=== PATIENT | male | born 1975 | race Caucasian/White ===

== ENCOUNTER → 2019-05-13 14:12 | Outpatient (CLI) | payer BC, SELFPAY ==
--- NOTE | 2019-05-13 14:25 | CT_ITS ---
PROCEDURE: CT SINUS WO CON CLINICAL HISTORY: CELLULITIS, FACIAL SWELLING, PIPER Cellulitis, swelling in the nose, left-sided facial pain and swelling COMPARISON: No exams were available for comparison TECHNIQUE: Axial images obtained with sagittal and coronal reformats. All CT scans at the facility use one or more dose reduction, viz: automated exposure control, ma/kV adjustment per patient size (including targeted exams where dose is matched to indication, i.e. head), or iterative reconstruction technique. FINDINGS: There is mild leftward nasal septal deviation inferiorly with narrowing of the left nasal canal. Minimal mucosal thickening involves the maxillary sinus on the left. No sinus air-fluid levels evident. No sinus soft tissue mass. The TMJs have an unremarkable appearance as do the orbits. No fracture or dislocation. No acute bony findings. Scattered small nodes are present in the neck. IMPRESSION: 1. No evidence of acute sinusitis. There is only minimal mucosal thickening of the maxillary sinus on the left. 2. Leftward nasal septal deviation Dictated by: aPrth Norwood MD 05/14/2019 14:40 Electronically signed by Parth Norwood MD in [place] 05/14/2019 14:40
== END ==
PROVIDERS: PCP Nurse Practitioner; Visit Provider Nurse Practitioner
DX: R22.0 Localized swelling, mass and lump, head; G44.89 Other headache syndrome; L03.213 Periorbital cellulitis
CPT/HCPCS: 70486

== ENCOUNTER 2020-09-29 13:20 | Emergency (ER) | payer BC, SELFPAY ==
[2020-09-29 13:28] VITALS: BP 142/96; PULSE 67; RESP 19; TEMP 37; O2SAT 100; BMI 27.8
--- NOTE | 2020-09-29 13:40 | HMH.EDUTC ---
[facility] [place]ression: Strep throat Disposition: Home, Self-Care Condition on Discharge: Good Instructions: Strep Throat, DI for Strep Throat Additional Instructions: Drink plenty of fluids. Take tylenol or ibuprofen for pain or fever. Take the medications as directed. Follow up with your regular doctor. GO TO THE ER FOR ANY WORSENING SYMPTOMS Throw you tooth brush away and get a new one. Prescriptions: Ondansetron [Zofran 4mg ODT] 4 mg PO Q8HP PRN #12 tab.rapdis PRN Reason: Nausea Transmission Status: [facility] Amoxicillin/Potassium Clav [Augmentin 875-125 Tablet] 1 tab PO Q12H 10 Days #20 tab Transmission Status: Re[facility] by [facility] Referrals: David Martinez MD [Primary Care Provider] - Time of Disposition: 13:44 Medical Decision Making - Medical Records Medical records reviewed: No: I reviewed the patient's medical records. - [place] Inquiry Pt receiving controlled substance: No Vital Signs: 09/29/20 13:28 09/29/20 14:36 Temperature 98.6 F 98.6 F Temperature Source Oral Oral Pulse Rate 70 Pulse Rate [Left] 67 Respiratory Rate 19 19 Blood Pressure 142/90 H Blood Pressure [Left Arm] 142/96 H Blood Pressure Mean [Left Arm] 111 02 Sat by Pulse Oximetry 100 Oxygen Delivery Method Room Air Room Air [facility] [place] - General Stated complaint: possible strep Time Seen by Provider: 09/29/20 13:40 Mode of Arrival: Family Vehicle Source of Information: Patient Description of Symptoms (Recalled from Triage Doc. by RN): Pt c/o sore throat, his family has been dx with strep this week. HEENT Symptoms (Recalled from RN notes): Yes Resp Symptoms (Recalled from RN notes): No Skin Symptoms (Recalled from RN notes): No MS Symptoms (Recalled from RN notes): No Functional Status (Recalled from RN notes): na - History of Present Illness Provider Complaint: He c/o sore throat for the past 2 days. Both his sons have been diagnosed with strep throat. - Related Data Previous Rx's Medication Instructions Recorded Amoxicillin/Potassium Clav 1 tab PO Q12H 10 Days #20 tab 09/29/20 [Augmentin 875-125 Tablet] Ondansetron [Zofran 4mg ODT] 4 mg PO Q8HP PRN #12 tab.rapdis 09/29/20 Allergies Allergy/AdvReac Type Severity Reaction Status Date / Time No Known Allergies Allergy Unverified 06/24/17 15:29 - Worker's Comp Is this a Worker's Comp case?: No [facility] History - Hepatitis A Screen Drug use history?: No High risk sexual behaviors?: No History of sexually transmitted infection?: No Currently employed?: No Childcare worker?: No Do you have indoor plumbing?: Yes Do you have electricity?: Yes Attestation statement:: This patient has been screened for Hepatitis A risk factors. I have reviewed the patient's past medical history: Yes - Social History Smoking Status: Current every day smoker Tobacco Type: cigarettes # Packs/Day (cigarettes): 1 Alcohol Intake: current Occupational Status: employed Housing: house Household Members: spouse ROS Obtained: Yes All systems reviewed & no additional complaints - Constitutional Constitutional: Reports chills, Denies fever(s), Reports poor appetite, Reports malaise - Eyes Eyes: Denies eye discharge - ENT Ears, Nose, Mouth, and Throat: Reports as per HPI, Reports sore throat - Cardiovascular Cardiovascular: Denies chest pain - Respiratory Respiratory: Denies chest congestion, Reports cough, Denies stridor, Denies wheezing Physical Exam - General General appearance: alert, in no apparent distress - Head Head exam: atraumatic, normocephalic, normal inspection - Eye Eye exam: Present: normal appearance, PERRL, EOMI - ENT ENT exam: Present: mucous membranes moist, normal external ear exam - Expanded ENT Exam TM/Canal exam: Bilateral TM: erythema, bulging Mouth exam: Present: normal external inspection Teeth exam: Present: normal inspection Throat exam
[2020-09-29 14:36] VITALS: BP 142/90; PULSE 70; RESP 19; TEMP 37; O2SAT 100
== END 2020-09-29 14:37 | disposition home or self-care (01) ==
PROVIDERS: Emergency Provider Nurse Practitioner Family; PCP Family Medicine
DX: J02.0 Streptococcal pharyngitis (principal)
CPT/HCPCS: 99202; G0463

== ENCOUNTER 2021-01-31 20:04 | Emergency (ER) | payer BC, SELFPAY ==
[2021-01-31 21:03] VITALS: BP 154/91; PULSE 92; RESP 19; TEMP 36.9; O2SAT 99; BMI 32.1
--- NOTE | 2021-01-31 21:41 | HMH.EDUTC ---
[facility] [place] Clinical Impression: URI (upper respiratory infection) Qualifiers: URI type: unspecified URI Qualified Code(s): J06.9 - Acute upper respiratory infection, unspecified Disposition: Home, Self-Care Condition on Discharge: Good Instructions: Sore Throat, Sinusitis, DI for Sinusitis Additional Instructions: *Monitor Temp, Over the counter Motrin or Tylenol as directed/as needed Tylenol every 4 hours and Motrin every 6 hours (as long as your family doctor has told you that you can take it) for fever or pain. and straight to ER if unable to lower temp less than 101.0 after medication given *Warm salt water gargles may help to soothe the throat *Throat Lozenges *Warm fluids like tea with honey may help to soothe the throat *Sleep elevated *Humidifier/Vaporizer *Return if needed Follow up IMMEDIATELY for new or worsening symptoms or no Noticeable improvement over the next 48-72 hours. 911 for difficulty breathing or swallowing Straight to ER if any life threatening symptoms Referrals: David Martinez MD [Primary Care Provider] - As needed Time of Disposition: 21:48 Medical Decision Making - [place]on Inquiry Pt receiving controlled substance: No [place] was queried for this patient: No Vital Signs: 01/31/21 21:03 01/31/21 21:42 Temperature 98.5 F 98.5 F Temperature Source Oral Pulse Rate 92 H Pulse Rate [Left] 92 H Respiratory Rate 19 19 Blood Pressure 154/91 H Blood Pressure [Right Arm] 154/91 H Blood Pressure Mean [Right Arm] 112 02 Sat by Pulse Oximetry 99 Orders (Tests/Meds): ED MEDICATIONS Discontinued Medications Generic Name Dose Route Start Last Admin Trade Name Rigoberto PRN Reason Stop Dose Admin Ceftriaxone Sodium 1 gm 01/31/21 21:43 01/31/21 21:51 Ceftriaxone 1gm Vial IM 01/31/21 21:44 1 gm ONCE ONE Administration Protocol Lidocaine HCl 0 ml 01/31/21 21:43 01/31/21 21:52 Lidocaine 1% 5ml Pf Vial IM 01/31/21 21:44 2.5 ml ONCE ONE Administration Methylprednisolone Sodium Succinate 125 mg 01/31/21 21:43 01/31/21 21:52 Methylprednisolone Sod Succ 125mg Vial IM 01/31/21 21:44 125 mg ONCE ONE Administration [facility] [place] - General Stated complaint: sinus infection Time Seen by Provider: 01/31/21 21:43 Mode of Arrival: Ambulatory Source of Information: Patient Limitations: No Limitations Description of Symptoms (Recalled from Triage Doc. by RN): pt c/o sinus pressure/pain and a cough since friday. HEENT Symptoms (Recalled from RN notes): Yes (sinus pressure and pain) Resp Symptoms (Recalled from RN notes): Yes (cough) Skin Symptoms (Recalled from RN notes): No MS Symptoms (Recalled from RN notes): No Functional Status (Recalled from RN notes): na - History of Present Illness Provider Complaint: Patient states that he has been having sinus congestion and pressure in the right side of his sinuses since Friday states that now he is having drainage in the back of his throat and feeling scratchy States that he wanted to get a shot to help before he ended up with a bad sinus infection again - Related Data Previous Rx's Medication Instructions Recorded Amoxicillin/Potassium Clav 1 tab PO Q12H 10 Days #20 tab 09/29/20 [Augmentin 875-125 Tablet] Ondansetron [Zofran 4mg ODT] 4 mg PO Q8HP PRN #12 tab.rapdis 09/29/20 Allergies Allergy/AdvReac Type Severity Reaction Status Date / Time No Known Allergies Allergy Verified 01/31/21 21:06 - Worker's Comp Is this a Worker's Comp case?: No [facility] History - Hepatitis A Screen Drug use history?: No High risk sexual behaviors?: No History of sexually transmitted infection?: No Currently employed?: No Childcare worker?: No Do you have indoor plumbing?: Yes Do you have electricity?: Yes Attestation statement:: This patient has been screened for Hepatitis A risk factors. I have reviewed the patient's past medical history: Yes - Social History Smoking Status: Current gris
[2021-01-31 21:42] VITALS: BP 154/91; PULSE 92; RESP 19; TEMP 36.9
== END 2021-01-31 21:58 | disposition home or self-care (01) ==
PROVIDERS: Emergency Provider Nurse Practitioner; PCP Family Medicine
DX: J06.9 Acute upper respiratory infection, unspecified (principal); F17.210 Nicotine dependence, cigarettes, uncomplicated
CPT/HCPCS: 96372; 99202; G0463

== ENCOUNTER 2021-12-01 10:55 | Emergency (ER) | payer BC, SELFPAY ==
[2021-12-01 11:10] VITALS: BP 148/107; PULSE 98; RESP 18; TEMP 36.7; O2SAT 99; BMI 32.1
[2021-12-01 11:42] LABS: Apearance,Urine Clear (Clear); Bilirubin,Urine Negative (Negative); Blood, Urine Negative (Negative); Color,Urine Dark Yellow (Yellow); Glucose,Urine (UA) Negative (Negative); Ketones,Urine Negative (Negative); PH,Urine 5.5 (5.0-8.5); Protein,Urine Negative (Negative); Specific Gravity, Urine >= 1.030 (1.005-1.030); UTC Leukocyte Esterase,Urine Negative (Negative); UTC Nitrate,Urine Negative (Negative); Urobilinogen,Urine 0.2 EU/dl (0.2)
--- NOTE | 2021-12-01 12:00 | HMH.EDUTC ---
[facility] [place] Clinical Impression: Urinary urgency, Dysuria Disposition: Home, Self-Care Condition on Discharge: Good Instructions: DI for Acute Prostatitis Additional Instructions: Take meds as needed, as prescribed. Return to ER if pain worsens, vomiting, fever, etc Prescriptions: Ciprofloxacin HCl [Cipro 500mg Tab] 500 mg PO BID 10 Days #20 tab Transmission Status: Pending to [facility] Tamsulosin HCl [Flomax 0.4mg capsule] 0.4 mg PO HS #30 cap Transmission Status: Pending to [facility] Ketorolac Tromethamine [Toradol 10mg tablet] 10 mg PO Q4HP PRN 5 Days #20 tab MDD 40mg/day PRN Reason: pain Transmission Status: Pending to [facility] Referrals: Oscar Gil MD [Primary Care Provider] - Time of Disposition: 12:16 Medical Decision Making - [place] Inquiry Pt receiving controlled substance: No Vital Signs: 12/01/21 11:10 Temperature 98.1 F Temperature Source Oral Pulse Rate [Right Brachial] 98 H Respiratory Rate 18 Blood Pressure [Right Arm] 148/107 H Blood Pressure Mean [Right Arm] 120 Blood Pressure Source [Right Arm] Automatic Cuff Blood Pressure Position [Right Arm] Sitting 02 Sat by Pulse Oximetry 99 Oxygen Delivery Method Room Air - Lab Data Lab results reviewed: Yes: I reviewed the patient's lab results. Lab Results 12/01/21 11:24: Urine Color Dark yellow, Urine Appearance Clear, Urine pH 5.5, Ur Specific [place] >= 1.030, Urine Protein Negative, Urine Glucose (UA) Negative, Urine Ketones Negative, Urine Blood Negative, Urine Nitrate Negative, Urine Bilirubin Negative, Urine Urobilinogen 0.2, Ur Leukocyte Esterase Negative Medical Decision Narrative: Patient does not want CT scan at this time. Will treat conservatively. Patient aware he may return at any time for imaging if pain worsens. [facility] [place] - General Stated complaint: possible kidney inf Time Seen by Provider: 12/01/21 12:09 Mode of Arrival: Ambulatory Source of Information: Patient Limitations: No Limitations Description of Symptoms (Recalled from Triage Doc. by RN): PATIENT C/O LOWER BACK PAIN AND URINARY URGENCY X 1 WEEK HEENT Symptoms (Recalled from RN notes): No Resp Symptoms (Recalled from RN notes): No Skin Symptoms (Recalled from RN notes): No MS Symptoms (Recalled from RN notes): Yes Functional Status (Recalled from RN notes): WNL - History of Present Illness Provider Complaint: Patient has had intermittent low back pain and urinary frequency X 1 week. Initially started last week after doing yard work. Eased up the next day but started again a few days later and again last night. He does have a history of one kidney stone that had to be extracted 13-14 years ago. This does not feel that bad. Does have some urinary urgency. No fever. No urinary hesitancy. No hematuria. Onset (ago): week(s) (1) Location: back, abdomen Radiation: flank Severity: mild Severity scale (1-10): 3 Quality: aching Consistency: intermittent Relieving factors: none Exacerbating factors: none Associated symptoms: denies other symptoms Treatments prior to arrival: none - Related Data Previous Rx's Medication Instructions Recorded Ciprofloxacin HCl [Cipro 500mg 500 mg PO BID 10 Days #20 tab 12/01/21 Tab] Ketorolac Tromethamine [Toradol 10 mg PO Q4HP PRN 5 Days #20 tab 12/01/21 10mg tablet] MDD 40mg/day Tamsulosin HCl [Flomax 0.4mg 0.4 mg PO HS #30 cap 12/01/21 capsule] Allergies Allergy/AdvReac Type Severity Reaction Status Date / Time No Known Allergies Allergy Verified 04/24/21 11:49 - Worker's Comp Is this a Worker's Comp case?: No [facility] History - Hepatitis A Screen Attestation statement:: This patient has been screened for Hepatitis A risk factors. I have reviewed the patient's past medical history: No Other Surgeries: Yes: No Previous Surgery - Social History Smoking Status: Current every day smoker Tobacco Type: cigarettes # Packs
[2021-12-01 12:16] VITALS: BP 148/107; PULSE 98; RESP 18; TEMP 36.7; O2SAT 99
== END 2021-12-01 12:36 | disposition home or self-care (01) ==
PROVIDERS: Emergency Provider Physician Assistant; PCP Family Medicine
DX: R30.0 Dysuria (principal); Z87.442 Personal history of urinary calculi; Z72.0 Tobacco use
CPT/HCPCS: 81003; 96372; 99212; G0463

== ENCOUNTER 2023-11-25 08:27 | Outpatient (CLI) | payer BC, SELFPAY ==
[2023-11-25 08:35] LABS: Microscopic, Urine URINE MICROSCOPIC (MICROSCOPIC)
[2023-11-25 09:06] LABS: Basophils # 0.1 K/mm3 (0-0.2); Eosinophils # 0.3 K/mm3 (0.0-0.4); Eosinophils % 2.9 % (0.1-12.0); Monocytes # 0.6 K/mm3 (0.1-1.0); Red Cell Distribution Width 13.6 % (11.5-17.5)
[2023-11-25 09:11] LABS: Appearance,Urine CLEAR (Clear); Bilirubin,Urine Negative (Negative); Blood, Urine Negative (Negative); Color,Urine YELLOW (Yellow); Glucose,Urine (UA) Negative (Negative); Ketones,Urine Negative (Negative); Leukocyte Esterase,Urine Negative (Negative); Nitrate,Urine Negative (Negative); Protein,Urine Negative (Negative); Specific Gravity, Urine >= 1.030 (1.005-1.030); Urobilinogen,Urine 0.2 EU/dl (0.2)
[2023-11-25 09:14] LABS: Basophils % 1.2 % (0.1-2.0); Hematocrit 56.3 % (42.0-52.0); Lymphocytes # 1.9 K/mm3 (0.7-4.5); Lymphocytes % 18.5 % (10-50); Mean Corpuscular HGB Conc 32.4 g/dL (31.8-35.4); Mean Corpuscular Hemoglobin 33.3 pg (27.0-31.2); Mean Corpuscular Volume 102.8 fl (80-94); Mean Platelet Volume 7.4 fl (7.4-10.4); Monocytes % 5.5 % (1.7-9.3); Neutrophils # 7.2 K/mm3 (1.8-7.8); Neutrophils % 71.9 % (37.0-80.0); Platelet Count 297 K/mm3 (142-424); Red Blood Count 5.48 M/mm3 (4.60-6.20)
[2023-11-25 09:17] LABS: Hemoglobin 18.2 g/dL (14.1-18.0)
[2023-11-25 09:31] LABS: Creatinine,Urine Random 245 mg/dL (Not Estab.); Total Protein,Urine Random < 5.0 mg/dL (0.0-12.0)
[2023-11-25 10:21] LABS: Alanine Aminotransferase 66 U/L (12-78); Albumin Level 4.4 g/dl (3.5-5.0); Albumin/Globulin Ratio 1.7 (1.1-1.8); Alkaline Phosphatase 66 U/L (38-126); Anion Gap 14.5 mEq/L (5-15); Aspartate Amino Transferase 37 U/L (17-59); Bilirubin,Total 0.8 mg/dl (0.2-1.3); Blood Urea Nitrogen 16 mg/dl (9-20); Calcium 9.8 mg/dl (8.4-10.2); Carbon Dioxide 30 mmol/L (22.0-30.0); Chloride 101 mmol/L (98-107); Chol/HDL Ratio 3.4 (1-3.5); Cholesterol 131 mg/dl (140-200); Estimated Glomerular Filt Rate 104 ml/min (>60); GFR (African American) 125 ML/MIN (>60); Globulin 2.6 g/dL (1.3-3.2); Glucose 142 mg/dl (74-100); HDL Cholesterol 39 mg/dl (40-60); Potassium 4.5 mmoL/L (3.5-5.1); Sodium 141 mmol/L (136-145); Triglycerides 175 mg/dl (30-150); VLDL Cholesterol 35 mg/dL (0-40)
[2023-11-25 10:32] LABS: Direct LDL Cholesterol 69.04 mg/dL (100-129)
[2023-11-25 10:37] LABS: 25-OH Vitamin D, Total 38.1 ng/mL (30-100)
[2023-11-25 10:38] LABS: Free T4 (Free Thyroxine) 1.31 ng/dl (0.78-2.19)
[2023-11-25 10:46] LABS: Iron 143 ug/dL (49-181)
[2023-11-25 10:55] LABS: Thyroid Stimulating Hormone 1.18 uIU/mL (0.465-4.68)
[2023-11-25 11:04] LABS: Total Iron Binding Capacity 351 ug/dL (261-462)
[2023-11-25 11:23] LABS: Ferritin 231 ng/ml (17.9-464)
[2023-11-25 11:31] LABS: Folate 5.28 ng/mL; Vitamin B12 523 pg/mL (239-931)
[2023-11-25 11:35] LABS: Hemoglobin A1C 6.5 % (4.0-6.0)
[2023-11-25 16:02] LABS: Bacteria,Urine Trace /lpf; Mucus,Urine 1+ /lpf; Squamous Epithelial Cell,Urine Occasional #/hpf (0-5)
[2023-11-26 08:19] LABS: HBsAg Screen Negative (Negative); HCV Ab Non Reactive (Non Reactive); HIV Screen 4th Generation wRfx Non Reactive (Non Reactive); Hep A Ab, IGM Negative (Negative); Hep B Core Ab, IgM Negative (Negative)
[2023-11-26 12:59] LABS: Rapid Plasma Reagin Ab Titer Non Reactive titer (NonRea<1:1)
== END 2023-11-25 23:59 | disposition home or self-care (01) ==
LOC: LAB 08:28
PROVIDERS: PCP Student in an Organized Health Care Education/Training Program; Visit Provider Nurse Practitioner Family
DX: R42 Dizziness and giddiness (principal); R53.83 Other fatigue; E66.9 Obesity, unspecified; Z68.31 Body mass index [BMI] 31.0-31.9, adult; E11.9 Type 2 diabetes mellitus without complications; Z79.84 Long term (current) use of oral hypoglycemic drugs; Z13.220 Encounter for screening for lipoid disorders; Z11.3 Encounter for screening for infections with a predominantly sexual mode of transmission; Z79.899 Other long term (current) drug therapy; Z11.4 Encounter for screening for human immunodeficiency virus [HIV]; R71.8 Other abnormality of red blood cells
CPT/HCPCS: 36415; 80053; 80061; 80074; 81001; 82043; 82306; 82570; 82607; 82728; 82746; 83036; 83540; 83550; 84156; 84439; 84443; 85025; 86593; 86703; 87086; G0432

== ENCOUNTER 2023-12-17 15:31 | Outpatient (POV) | payer BC, SELFPAY | END 2023-12-17 23:59 | disposition home or self-care (01) | LOC: SC 15:31 | PROVIDERS: Visit Provider Specialist/Technologist | DX: Z00.00 Encounter for general adult medical examination without abnormal findings (principal) ==